=== PATIENT | female | born 1990 | race Hispanic/Latino ===

== ENCOUNTER 2017-11-17 13:22 | Day surgery (SDC) | payer SELFPAY ==
[2017-11-17 13:54] VITALS: BMI 30.5
--- NOTE | 2017-11-17 15:06 | PDOC.LDHP ---
Labor and Delivery H&P HPI: Ms Palacio is a female at 37.6weeks by 7.4wk US (ERROL 12/02/17) presenting with brown discharge after appt yesterday. She was able to show a picture of discharge on paper towel and quantified it at about a tablespoon. Denies any other trauma, LOF, decreased movements, josselin blood. Current gestational age (weeks): 37 Dating criteria: first trimester ultrasound Grav: 5 Para: 4 Current complications: none Abnormal US findings: No Current medications: pre- vitamins Previous surgical history: none Social history: none - Physical Exam Vital signs reviewed and normal: yes General: NAD Heart: RRR Lungs: CTAB Abdomen: NTTP FHT: category 1 (140/mod/+ accels/no decels) [place] contractions every: irritability - Vaginal Exam cm dilated: 3 Effacement: 0% Station: -3 - OB Labs Blood type: A RH: positive Antibody Screen: negative HIV: negative RPR: negative HEPSAg: negative 1 hour GCT: negative GBS: negative Urine drug screen: not done Rubella: immune - Assessment Spotting likely 2/2 to digital trauma from cervical exam - Plan Plan: other -: Precautions given. It was relayed to her that it is normal to expect some spotting after cervical check. If large amount of bleeding recurs it would be a cause for concern and she should return immediately. <Renuka Vasquez - Last Filed: 11/17/17 15:01> <Dorothea Donis - Last Filed: 11/17/17 17:21> Allergies/Adverse Reactions: Allergies Allergy/AdvReac Type Severity Reaction Status Date / Time No Known Allergies Allergy Unverified 11/17/17 13:52 Attending Addendum - Attending Addendum Date/Time: 11/17/17 1720 I personally evaluated the patient and discussed the management with Dr. Vasquez. I agree with the History, Examination, Assessment and Plan documented above. <Dorothea Donis - Last Filed: 11/17/17 17:21>
== END 2017-11-17 15:15 | disposition home or self-care (01) ==
LOC: L&D/OP 13:22
PROVIDERS: ATTEND Obstetrics & Gynecology
DX: O26.853 Spotting complicating pregnancy, third trimester (principal); Z3A.37 37 weeks gestation of pregnancy
CPT/HCPCS: 99282

== ENCOUNTER 2017-11-18 22:57 | Day surgery (SDC) | payer OTHER, SELFPAY ==
[2017-11-19 00:07] VITALS: BP 125/77; TEMP 98.6
[2017-11-19 00:08] VITALS: BMI 31.5
--- NOTE | 2017-11-19 00:46 | PDOC.LDHP ---
Labor and Delivery H&P Chief complaint: contractions HPI: This is a 27 yo female at 38.0 based on 7.4 US not consistent with LMP who presents to L&D with a CC of contractions. She states that the conttationsions have been going on all day but increased in strength and frequency (<5min) at ~2100 this evening. Pt. states that the contractions are painful and are an 8/10 pain [place]. Pt. denies abdominal pain, vaginal discharge or bleeding. Pt. states that she did have some nausea today but denies vomiting. Pt. states that she has been having a headache and lightheadedness today. She denies chest pain and dyspnea. Pt. was seen in our [facility] on Sunday and was 2//-3 and had her membranes stripped Current gestational age (weeks): 38 (38.0) Due date: 12/03/17 Dating criteria: first trimester ultrasound (at 7.4 not consistent with LMP) Grav: 5 Para: 4 OB History Details: Denies complications of previous pregnancies. All babies were delivered at term Current complications: none Abnormal US findings: No Current medications: pre-mandy vitamins Previous surgical history: none Allergies/Adverse Reactions: Allergies Allergy/AdvReac Type Severity Reaction Status Date / Time No Known Allergies Allergy Verified 11/19/17 00:14 Social history: none - Physical Exam Vital signs reviewed and normal: yes General: NAD, resting Heart: RRR Lungs: nonlabored breathing Abdomen: gravid Extremeties: trace edema FHT: category 1 - Vaginal Exam cm dilated: 3 Effacement: 50% Station: -2 - OB Labs Blood type: A RH: positive Antibody Screen: negative HIV: negative RPR: negative HEPSAg: negative GBS: negative Rubella: immune - Assessment L&D Assessment: term patient in labor - Plan Plan: observation in L&D (Will observe in L&D for 2 hrs and then recheck. If unchanged, will likely send home. If pt. progresses, we will admit them.)
--- NOTE | 2017-11-19 02:25 | PDOC.EVN ---
Event Note - Event Note Event Note: Pt. is unchanged, still at 3/60/-2 at 0215. Contractions feel the same,-12/14. Contractions are spacing out to every 4-6 min.
[2017-11-19] MEDS ORDERED: Butorphanol Tartrate 1 MG/ML VIAL IM SCH (02:30)
--- NOTE | 2017-11-19 05:32 | PDOC.EVN ---
Event Note - Event Note Event Note: Pt. is unchanged at 360/-2, contractions are the same, FHT baseline is in the 140s with moderate variability category 1 FHT tracing. Pt. will be discharged at this time and encouraged to return to L&D if she notices a change in her contractions or condition.
== END 2017-11-19 05:50 | disposition home or self-care (01) ==
LOC: L&D/OP 22:57
PROVIDERS: ATTEND Family Medicine
DX: O47.1 False labor at or after 37 completed weeks of gestation (principal); Z3A.38 38 weeks gestation of pregnancy
CPT/HCPCS: 99283; J0595

== ENCOUNTER 2017-11-20 17:55 | Day surgery (SDC) | payer SELFPAY ==
[2017-11-20 18:38] VITALS: BMI 32.5
[2017-11-20 19:06] VITALS: BP 121/72; TEMP 98.9
[2017-11-20 20:08] LABS: Amnisure Test No Membranes Rupture (No Rupture)
[2017-11-20 20:09] LABS: Amnisure Internal Control QC ACCEPTABLE (ACCEPTABLE)
--- NOTE | 2017-11-20 20:10 | PDOC.LDHP ---
Labor and Delivery H&P Chief complaint: loss of fluid HPI: This is a 27 yo female at 38.2 wks based on 7.4 US not consistent with LMP presenting to L&D with a cc of loss of fluid. She states that she was taking a nap at 1600 today and woke up with leaking fluid. She denies any vaginal bleeding or abdominal pain. She states that she has been having regular contractions every 3-4 minutes. She denies chest pain and dyspnea. Pt. was 210/-3 on Sunday in clinic and had her membranes stripped. Sunday night she presented to L&D for labor r/o and was having contractions every 2-3 minutes. At that time she was 350/-3 and was sent home due to failure to progress. Current gestational age (weeks): 38 (38.2) Due date: 12/03/17 Dating criteria: first trimester ultrasound (at 7.4 wks, not consistent with LMP ) Grav: 5 Para: 4 OB History Details: Denies complications of previous pregnancies. All babies were delivered at term via . Current complications: none Abnormal US findings: No Current medications: pre-mandy vitamins Previous surgical history: none Allergies/Adverse Reactions: Allergies Allergy/AdvReac Type Severity Reaction Status Date / Time No Known Allergies Allergy Verified 11/19/17 00:14 Social history: none - Physical Exam Vital signs reviewed and normal: yes General: NAD, resting Heart: RRR Lungs: nonlabored breathing Abdomen: NTTP Extremeties: trace edema FHT: variability present (Baseline 130s, moderate variability, multipl accels, no decels) [place] contractions every: 3 minutes - Vaginal Exam cm dilated: 3 () Station: -2 - OB Labs Blood type: A RH: positive HIV: negative RPR: negative HEPSAg: negative Rubella: immune - Assessment L&D Assessment: term patient in labor (R/O ROM) SVE reveals pooling in vaginal vault Cook score is 7 - Plan Plan: observation in L&D (Amnisure was collected, awaiting results, If ruptured , will admit to L&D, 4 hour cervix checks, augment with pitocin. If negative, monitor, repeat 2hr cervix checks) -: Up date: Pt. was checked again at two hours and was unchanged. Pt. elected to go home and was educated on return criteria. GBS swab was collected as I was unable to located record of GBS status.
--- NOTE | 2017-11-20 21:51 | PDOC.EVN ---
Event Note - Event Note Event Note: Pt. states that the contractions feel about the same. Her SVE showed no change, /. She was told we would watch her for another 2 hours and send her home. She states she would like to leave now if she could.
== END 2017-11-20 22:15 | disposition home health service (06) ==
LOC: L&D/OP 17:55
PROVIDERS: ATTEND Family Medicine
DX: O47.1 False labor at or after 37 completed weeks of gestation (principal); Z3A.38 38 weeks gestation of pregnancy
CPT/HCPCS: 84112; 87081; 99284

== ENCOUNTER 2017-11-26 08:38 | Inpatient (IN) | payer MEDICAID, SELFPAY ==
[2017-11-26] MEDS ORDERED: Promethazine HCl 25 MG/ML VIAL IM PRN (09:12)
[2017-11-26] MEDS ORDERED: Ondansetron HCl/PF 4 MG/2 ML Vial IVP PRN (09:12)
[2017-11-26] MEDS ORDERED: Acetaminophen 500 MG TAB PO PRN (09:12)
[2017-11-26] MEDS ORDERED: NS / Oxytocin 40 units/1000ml 1,000 ML IV PRN (09:14)
[2017-11-26] MEDS ORDERED: Lidocaine 1% (PF) 30 ML VIAL SC PRN (09:14)
[2017-11-26] MEDS ORDERED: Ibuprofen 800 MG TAB PO PRN (09:14)
[2017-11-26] MEDS ORDERED: Lactated Ringer's 1,000 ML IV SCH (09:15)
[2017-11-26 09:29] VITALS: BMI 31.8
[2017-11-26] MEDS ORDERED: DISCONTINUE ALL PREVIOUS NARCOTICS FS SCH (09:30)
[2017-11-26] MEDS ORDERED: Bupivacaine 0.75% 13.4 ML, fentaNYL Citrate/PF 400 MCG in Sodium Chloride 0.9% 78.6 ML EPIDURAL SCH (09:30)
[2017-11-26] MEDS ORDERED: Butorphanol Tartrate 1 MG/ML VIAL ONE (09:45)
--- NOTE | 2017-11-26 09:50 | PDOC.LDHP ---
Labor and Delivery H&P Chief complaint: contractions HPI: This is a @ 39.1 by 7.4 wk sono that presents with contractions. Pt states she started having Painful cxns every 2 minutes starting this morning at 6 AM. Denies LOF or vaginal bleeding. Baby is moving well. 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 Current gestational age (weeks): 39 (39.1) Due date: 12/02/17 Dating criteria: first trimester ultrasound (7 wk U/S) Grav: 5 (5) Para: 4 (4004) OB History Details: hx: : four term vaginal deliveries Chlamydia in 2010, chlamydia neg during Hx of TB, s/p Treatment in 1993 GBS + in prior , tx with Azucena. Cx done on last visit for this was negative for GBS. Current complications: other Abnormal US findings: No Past Medical History: PMH: TB s/p tx in 1993, hx of chlamydia in 2010 (neg chlamydia test for this ). Current medications: pre- vitamins Previous surgical history: none Social history: none - Physical Exam Vital signs reviewed and normal: yes General: NAD, breathing through contractions Heart: RRR Lungs: CTAB Abdomen: gravid Extremeties: no edema FHT: category 1 (FHTs: baseline 145, mod variability, cxns every 2 minutes, Good accels, variable decels. CAT 1 tracing), variable decelerations, variability present - Vaginal Exam cm dilated: 7 Effacement: 90% Station: -1 - OB Labs Blood type: A RH: positive Antibody Screen: negative HIV: negative RPR: negative HEPSAg: negative 1 hour GCT: negative GBS: negative Urine drug screen: not done Rubella: immune - Assessment L&D Assessment: term patient in labor - Plan Plan: admit to L&D -: 27 F @ 39.1 by 7.4 wk sono presenting in labor with contractions. #1. Term , Active labor -Reassuring FHTs, Cat 1 tracing -Cxn every 2 minutes -Cervical check on presentation was /-1 -Expectant management #2. sIUP @ 39.1 wks -see plan as above #3. Hx of TB -S/p tx in 1993 for 9 months #4. Hx of STD -Chlamydia in 2010, negative in this <Lynne Fernandez - Last Filed: 11/26/17 11:01> <Hamilton Rivera - Last Filed: 11/27/17 07:29> Allergies/Adverse Reactions: Allergies Allergy/AdvReac Type Severity Reaction Status Date / Time No Known Allergies Allergy Verified 11/19/17 00:14 Attending Addendum - Attending Addendum Date/Time: 11/27/17727 I personally evaluated the patient and discussed the management with Dr. Fernandez I agree with the History, Examination, Assessment and Plan documented above with any addition or exceptions noted below. <Hamilton Rivera - Last Filed: 11/27/17 07:29>
[2017-11-26] MEDS ORDERED: Fentanyl 100 MCG/2 ML VIAL SLOW IVP SCH (10:00)
[2017-11-26] MEDS ORDERED: NS / Oxytocin 40 units/1000ml 1,000 ML ONE (10:17)
[2017-11-26] MEDS ORDERED: Lidocaine 1% (PF) 30 ML VIAL ONE (10:17)
[2017-11-26 10:22] LABS: Hemoglobin 11.5 g/dL (12.0-16.0); Mean Corpuscular HGB CONC 33.9 g/dL (32.0-36.0); Mean Corpuscular Hemoglobin 29.7 pg (27.0-31.0); Mean Corpuscular Volume 87.6 fL (78.0-98.0); Mean Platelet Volume 11.4 fL (7.4-10.4); Platelet Count 123 thou/uL (130-400); RBC Distribution Width 12.3 % (11.5-14.5); Red Blood Cell (RBC) Count 3.86 mill/uL (4.20-5.40); White Blood Cell (WBC) Count 9.8 thou/uL (4.8-10.8)
[2017-11-26] MEDS ORDERED: Bisacodyl 10 MG SUPP PR PRN (10:39)
[2017-11-26] MEDS ORDERED: diphenhydrAMINE 25 MG CAP PO PRN (10:39)
[2017-11-26] MEDS ORDERED: Lanolin Ointment 7 GM TUBE TOP PRN (10:39)
[2017-11-26] MEDS ORDERED: Adacel (T-DAP) 0.5 ML VIAL IM ONE (10:39)
[2017-11-26 11:05] LABS: Syphilis Antibody Nonreactive (Nonreactive); Syphilis Antibody Index 0.04 S/CO (<1.00 Non-Reactive)
[2017-11-26 11:24] LABS: HBSAg Index 0.17 S/CO (0-0.99); Hep B Surf Ag Non-Reactive S/CO (NonReactive)
--- NOTE | 2017-11-26 11:24 | PDOC.OPDEL ---
OB Operative/Delivery Note Delivery Dr/Surgeon: Lynne Fernandez Assist: Jimbo Landin, Nicole Hurtado Pre-Delivery Diagnosis: active labor Procedure/Post Delivery Dx: spontaneous vaginal delivery Weeks gestation: 39 (39.1) Anesthesia: none - Findings A Sex: male - 1 min: 9 - 5 min: 9 - Additional Findings/Plan Placenta delivered: spontaneous Repaired Obstetrical Laceration: none Estimated blood loss: 73 ml Compilations/Other Findings: Delivering Physician: Lynne Fernandez Attending: Nicole Procedure: Spontaneous Vaginal Delivery Anesthesia: none EBL: 73 ml Pre-op Diagnosis: 1. Term intrauterine in labor Post-op Diagnosis: 1. Term intrauterine , delivered Indications: A 27y/o female presents in active labor Delivery Note: This is 27yo F @ 39.1 wks who delivered a viable M infant at 1027. Following an uneventful antepartum course, a vigorous M was delivered over an intact perineum in the OPAL position. Anterior Shoulder and then remainder of the body delivered. No nuchal cord. The head was held down and mouth and nares were bulb suctioned. Cord clamped after delayed cord clamping and cut and cord blood collected. Placenta delivered intact Kim with a 3 vessel cord noted. Fundal massage was performed and the fundus was firm. The cervix and vagina were inspected and found to be free of lacerations. Infant went to nursery in good condition for routine care. Apgars were 9/9 at 1 & 5 minutes, respectively. Patient tolerated delivery well and went to after routine recovery/care. Post delivery plan: routine recovery <Lynne Fernandez - Last Filed: 11/26/17 11:22> Attending Addendum - Attending Addendum Date/Time: 11/27/17 0739 I personally evaluated the patient and discussed the management with Dr. Fernandez. I was present for the entire second and third stages of labor. I agree with the History, Examination, Assessment and Plan documented above with any addition or exceptions noted below. <Hamilton Rivera - Last Filed: 11/27/17 07:30>
[2017-11-26] MEDS: Ibuprofen 800 MG TAB PO SCH ×2 (14:01→23:10)
--- NOTE | 2017-11-27 05:32 | PDOC.PP ---
Post Progress Note Post Day #: 1 Subjective: Mom is feeling well. Eating, drinking, voiding, passing flatus, ambulating. Breast feeds are going well. No complaints. Vital Signs (12 hours) Temp Pulse Resp BP 11/26/17 17:37 98.7 F 60 20 118/62 Weight Weight 81.647 kg - Physical Examination General: NAD Cardiovascular: no m/r/g, RRR Respiratory: clear to auscultation bilaterally Abdominal: + bowel sounds, no distention, appropriately TTP Fundus firm & at: above umbilicus on right side, firm Psychiatric: A&Ox3, normal affect Result Diagrams: 11/26/17 10:06 Additional Labs: Post Labs Blood Type A POSITIVE 11/26/17 10:06 Hep Bs Antigen Non-Reactive S/CO (NonReactive) 11/26/17 10:06 (1) Term delivered Code(s): O80 - ENCOUNTER FOR FULL-TERM UNCOMPLICATED DELIVERY Status: Acute - Assessment/Plan 27 F G5P now P5 delivered term LGA infant by @ 1027 on 11/26 @ 39.1 by 7.4 wk lulu, now day 1 post . #1. Term , Delivered -Eating, drinking, voiding well. Having flatus, ambulating -Fundus firm, above umbilicus on right -Breast feeding, going well -Perineum intact healing well -Plans for contraception: nexplanon #2. Delivered LGA infant -4127 gms #3. Hx of TB -S/p tx in 1993 for 9 months #4. Hx of STD -Chlamydia in 2010, negative in this
[2017-11-27] MEDS: Ibuprofen 800 MG TAB PO SCH (06:33)
[2017-11-27 08:14] VITALS: BP 108/62; TEMP 97.8
[2017-11-27] MEDS ORDERED: Prenatal Vitamin 1 TAB PO SCH (09:00)
== END 2017-11-27 15:25 | disposition home or self-care (01) | DRG 775 ==
LOC: L&D/OP 08:38 → L&D 09:24 → 3SW 12:59
PROC: 10E0XZZ Delivery of Products of Conception, External Approach (ICD-10-PCS; principal; 2017-11-26)
DX: O71.4 Obstetric high vaginal laceration alone (principal); Z3A.39 39 weeks gestation of pregnancy; Z37.0 Single live birth; Z86.11 Personal history of tuberculosis; Z86.19 Personal history of other infectious and parasitic diseases; O36.63X0 Maternal care for excessive fetal growth, third trimester, not applicable or unspecified
CPT/HCPCS: 36415; 85027; 86780; 86850; 86900; 86901; 87340; 90715; 99285; J0595; J2001; J3010; J7050